=== PATIENT | female | born 1985 | race Caucasian/White ===

== ENCOUNTER 2022-11-13 19:34 | Emergency (ER) | payer OTHER ==
[2022-11-13] MEDS ORDERED: Tetracaine 0.5% PF 4 ML BOT ONE (20:16)
[2022-11-13] MEDS ORDERED: Fluorescein Opthalmic Strip ONE (20:16)
[2022-11-13] MEDS ORDERED: Erythromycin Base 0.5% Oint 1 GM TUBE ONE (20:23)
== END 2022-11-13 20:30 | disposition home or self-care (01) ==
LOC: NAV ERS 19:34
DX: S05.01XA Injury of conjunctiva and corneal abrasion without foreign body, right eye, initial encounter (principal); W22.8XXA Striking against or struck by other objects, initial encounter
CPT/HCPCS: 99283